=== PATIENT | female | born 1965 | race Caucasian/White ===

== ENCOUNTER → 2017-02-14 | Day surgery (SDC) | payer BC ==
[~2017-02-14] MED LIST: AMITRYPTYLINE PO; CELEXA PO; EFFEXOR75 M2 PO; OTC IRON; PRILOSEC PO; TOPAMAX PO
--- NOTE | ~2017-02-14 | OR ---
Unit #: [id number] #: [id number] Patient: MANDY GRAY [id number] [place], [place] [address] [id number] MR#: [id number] NAME: MANDY GRAY ROOM: Date of Procedure: 02/14/2017 Admission Date: 02/14/2017 Surgeon: Constantino Hayes M.D. : 1965 Attending Physician: Constantino Hayes M.D. Primary Care Physician: Kim Oakley A.P.R.N. OPERATIVE REPORT PREOPERATIVE DIAGNOSIS Enlarging subcutaneous mass, posterior scalp. POSTOPERATIVE DIAGNOSIS Enlarging subcutaneous mass, posterior scalp. PROCEDURE PERFORMED Excision of enlarging sebaceous cyst, posterior scalp (3 cm). ANESTHESIA General LMA anesthesia with 0.5% Marcaine plain local anesthesia. FINDINGS The area was consistent with a sebaceous cyst. SPECIMENS Sent to pathology. COMPLICATIONS None apparent. CONDITION The patient tolerated the procedure well. INDICATIONS FOR PROCEDURE The patient is a 51-year-old female, who has enlarging subcutaneous mass on the posterior scalp. She presents at this time for excision for pathologic diagnosis and treatment. DESCRIPTION OF PROCEDURE After obtaining informed consent as well as receiving preoperative antibiotics, the patient was brought to the operating room and after adequate general LMA anesthesia was obtained, was carefully placed into the left lateral decubitus position with an axillary roll. All pressure points were carefully padded and all extremities manipulated carefully using a beanbag to secure the patient. The posterior scalp was prepped and draped in a sterile fashion. An elliptical incision was made over the top of the lesion. On coming down through the skin through the subdermal tissues, it became obvious that it was an enlarging sebaceous cyst. The cyst was dissected free from the surrounding structures with blunt and sharp dissection. Hemostasis was obtained with 3-0 Vicryl suture ligatures and electrocautery. The wound was copiously irrigated. All Unit #: [id number] #: [id number] Patient: MANDY GRAY areas were infiltrated with 0.5% Marcaine plain local anesthesia. The incision was closed with interrupted 3-0 Prolene vertical mattress sutures. A thin layer of antibiotic ointment was applied followed by a dry dressing. Needle counts, sponge counts, and instrument counts were all correct as reported by the scrub nurse x2. The patient went from the operating room to the recovery room in stable condition. Dictated by... Kizzy Ramachandran/mel TD: 02/15/2017 00:57 JOB #: [id number] CC: [facility] OPERATIVE REPORT Page 1 of 1 X Constantino Hayes MD X PROCEDURE OPERATIVE NOTE
== END | disposition home or self-care (01) ==
LOC: CSUR 05:33
DX: L72.0 Epidermal cyst (principal); G43.909 Migraine, unspecified, not intractable, without status migrainosus; K21.9 Gastro-esophageal reflux disease without esophagitis; F32.9 Major depressive disorder, single episode, unspecified; F17.210 Nicotine dependence, cigarettes, uncomplicated; Z88.1 Allergy status to other antibiotic agents; Z88.8 Allergy status to other drugs, medicaments and biological substances; Z79.891 Long term (current) use of opiate analgesic; Z79.82 Long term (current) use of aspirin; Z79.899 Other long term (current) drug therapy; Z98.51 Tubal ligation status; Z98.890 Other specified postprocedural states
CPT/HCPCS: 84703; 88304; J0690; J2250; J2405; J3010